=== PATIENT | male | born 1985 | race Caucasian/White ===

== ENCOUNTER 2019-05-28 19:23 | Emergency (ER) | payer BC ==
[2019-05-28] MEDS ORDERED: Amoxicillin/Potassium Clav 875 MG TAB ONE (19:48)
== END 2019-05-28 20:10 | disposition home or self-care (01) ==
LOC: MADERS 19:23
DX: J01.90 Acute sinusitis, unspecified (principal); B96.89 Other specified bacterial agents as the cause of diseases classified elsewhere; R03.0 Elevated blood-pressure reading, without diagnosis of hypertension
CPT/HCPCS: 99283

== ENCOUNTER 2020-02-28 17:47 | Emergency (ER) | payer BC | END 2020-02-28 18:43 | disposition home or self-care (01) | LOC: MADERS 17:47 | DX: J06.9 Acute upper respiratory infection, unspecified (principal); Z87.891 Personal history of nicotine dependence | CPT/HCPCS: 99283 ==

== ENCOUNTER 2020-05-26 07:45 | Emergency (ER) | payer BC ==
[~2020-05-26 07:45] MED LIST: Sodium Chloride 0.9% 1,000 ML BAG ONE
[2020-05-26] MEDS ORDERED: Lorazepam 2 MG/ML VIAL ONE (08:31)
[2020-05-26 08:38] LABS: #Eosinphils 0.1 thou/uL (0.0-0.7); #Lymphocytes 1.8 thou/uL (1.20-3.40); #Monocytes 0.5 thou/uL (0.11-0.59); #Neutrophils 3.2 thou/uL (1.40-6.50); %Basophils 0.7 % (0.0-1.0); %Eosinophils 1.2 % (0.0-10.0); %Lymphocytes 32.7 % (21.0-51.0); %Monocytes 8.1 % (0.0-10.0); %Neutrophils 57.3 % (42.0-75.0); Hemoglobin 16.2 g/dL (14.0-18.0); Mean Corpuscular HGB CONC 33.9 g/dL (32.0-36.0); Mean Corpuscular Hemoglobin 29.5 pg (27.0-31.0); Mean Platelet Volume 8.2 fL (7.4-10.4); Platelet Count 241 thou/uL (130-400); RBC Distribution Width 11.4 % (11.5-14.5); White Blood Cell (WBC) Count 5.6 thou/uL (4.8-10.8)
[2020-05-26 08:50] LABS: ALT (SGPT) 20 U/L (8-55); AST (SGOT) 17 U/L (5-34); Albumin 4.4 g/dL (3.5-5.0); Alkaline Phosphatase 88 U/L (40-110); Anion Gap 17 mmol/L (10-20); BUN (Urea Nitrogen) 11 mg/dL (8.9-20.6); Bilirubin, Total 0.7 mg/dL (0.2-1.2); Calc. Creatinine Clearance 0 mL/min (70-130); Calcium 8.8 mg/dL (7.8-10.44); Carbon Dioxide 22 mmol/L (22-29); Chloride 105 mmol/L (98-107); Globulin 2.5 g/dL (2.4-3.5); Glucose 94 mg/dL (70-105); Potassium 3.8 mmol/L (3.5-5.1); Protein, Total 6.9 g/dL (6.0-8.3); Sodium 140 mmol/L (136-145)
== END 2020-05-26 09:15 | disposition home or self-care (01) ==
LOC: MADERS 07:45
DX: F10.239 Alcohol dependence with withdrawal, unspecified (principal); J45.909 Unspecified asthma, uncomplicated; Z87.891 Personal history of nicotine dependence
CPT/HCPCS: 36416; 80053; 85025; 93005; 94760; 96374; J2060; J7050

== ENCOUNTER 2023-04-08 07:18 | Emergency (ER) | payer BC ==
[2023-04-08] MEDS ORDERED: Acetaminophen 325 MG TAB ONE (07:51)
[2023-04-08] MEDS ORDERED: Ibuprofen 800 MG TAB ONE (07:51)
== END 2023-04-08 08:20 | disposition home or self-care (01) ==
LOC: MADERS 07:18
DX: S83.91XA Sprain of unspecified site of right knee, initial encounter (principal); J45.909 Unspecified asthma, uncomplicated; F17.210 Nicotine dependence, cigarettes, uncomplicated; Z79.82 Long term (current) use of aspirin; W18.30XA Fall on same level, unspecified, initial encounter